=== PATIENT | female | born 1970 | race Caucasian/White ===

== ENCOUNTER → 2024-03-29 10:25 | Outpatient (REF) | payer MEDICARE, OTHER, SELFPAY | LOC: HWCARD 10:25 | PROVIDERS: ATTENDING PHYSICIAN Registered Nurse; FAMILY PHYSICIAN Family Medicine | DX: R94.31 Abnormal electrocardiogram [ECG] [EKG] (principal); Z79.899 Other long term (current) drug therapy | CPT/HCPCS: 93005 ==

== ENCOUNTER 2024-07-13 23:41 | Emergency (ER) | payer MEDICARE, OTHER, SELFPAY ==
[2024-07-13 23:44] VITALS: BP 123/85
[2024-07-14 00:36] VITALS: BMI 25.7
--- NOTE | 2024-07-14 01:19 | ED.GENMED ---
History of Present Illness
General
Chief Complaint: Psychiatric Problem
Source: patient and spouse
Time Seen by Provider: 07/14/24 00:40
History of Present Illness
History of Present Illness:
54-year-old female with history of schizoaffective disorder on Geodon who presents after she developed jaw tightness and her mouth stuck open. She states it causes her to have spasms of her muscles and she also vomited. She ended up taking several
doses of Cogentin at home. The patient states she was not sure she kept it down because she vomited so took up to 4 or 5 mg. In addition, she took a milligram of Klonopin. The patient now feels much better. She states that sometimes she feels
like she should get an injection because it works faster because the symptoms lasted about 2 hours and were difficult for her. No other symptoms noted. She states she has been tolerating otherwise Geodon well
Past History
Past History
ED Past Medical History: Psychiatric (The patient has a history of schizoaffective disorder, eating disorders, anorexia nervosa)
ED Past Surgical History: None
Social History
Personal: Single
Living: with family
Employment: Employed
Phy Exam
Physical Exam
Physical Exam:
CONSTITUTIONAL Vital signs reviewed, Patient alert and oriented to person, place and time. Well-appearing
HEAD atraumatic, normocephalic.
EYES eyelids normal to inspection, Extraocular muscles intact, Conjunctiva normal, Sclera normal.
NECK normal range of motion, Trachea midline, no jugular venous distention.
RESP no respiratory distress
BACK No obvious deformities
UPPER EXTREMITY Gross Range of motion normal, gross motor strength normal
LOWER EXTREMITY Gross range of motion normal, Gross motor strength normal
NEURO Speech normal, No focal motor deficits include, [place] coma scale 15, Memory normal, Cranial Nerves intact to screening exam.
SKIN Skin warm, dry, and normal in color.
PSYCHIATRIC Patient oriented to person place and time, Normal affect.
Course
Vital Signs
Initial and Last Documented VS:
Initial Vital Signs
Temp Pulse Resp BP Pulse Ox
98.1 F 80 15 123/85 98
07/13/24 23:44 07/13/24 23:44 07/13/24 23:44 07/13/24 23:44 07/13/24 23:44
Last Documented Vital Signs
Temp Pulse Resp BP Pulse Ox
98.1 F 80 15 123/85 98
07/13/24 23:44 07/13/24 23:44 07/13/24 23:44 07/13/24 23:44 07/13/24 23:44
MDM/Problems Addressed
MDM/Problems Addressed:
Dystonic reaction
*Pulse Oximetry
Patient hypoxic: no
*Critical Care Note
Total Time (30-74mins, 75-104mins- exclusive of procedures): Not Applicable
Data Reviewed
Source: patient and spouse
Prescriptions/Medications Considered But Not Given:
Consider Benadryl with patient symptoms have resolved
Patient Management
Escalation/DeEscalation of care consider admission/obs:
Awake and alert, no further symptoms. Okay for discharge and outpatient follow-up.
ED Attending Note
-
Portions of this chart may have been created with voice recognition software.� Occasional wrong word or��sound alike� substitutions may have occurred due to the inherent limitations of voice recognition software.
Discharge Plan
Departure
Patient Disposition: Home (Routine Discharge)
Date of Disposition: 07/14/24
Time of Disposition: 01:19
Patient with high blood pressure during this ER visit?: No
Discharge Problem:
Dystonia
Instructions: Dystonia
Prescriptions:
No Action
No Current Medications
0
Referrals:
UNKNOWN - PT DOES,NOT KNOW [Family Provider] -
Activity Restrictions/Additional Instructions:
Please see your doctor in the next 3 days for follow-up and reevaluation. Return immediately for intractable symptoms, vomiting, poor reaction to medications or any other concerns.
Interventions
Interventions:
*Risk Screen - Suicide Last Done: 07/14/24 00:37
*General Assessment Last Done: 07/14/24 00:37
*Neglect/Abuse Screening Last Done: 07/14/24 00:37
*ED COVID-19 Vaccine History Last Done: 07/14/24 00:37
Discharge Date and Time
Print Language: MONGOLIAN
== END 2024-07-14 01:36 | disposition home or self-care (01) ==
LOC: EMR 23:41
PROVIDERS: EMERGENCY PHYSICIAN Emergency Medicine
DX: G24.9 Dystonia, unspecified (principal); F25.9 Schizoaffective disorder, unspecified
CPT/HCPCS: 99282

== ENCOUNTER 2024-08-06 20:00 | Emergency (ER) | payer MEDICARE, OTHER, SELFPAY ==
[2024-08-06 20:03] VITALS: BP 170/97; BMI 26.6
[2024-08-06 20:10] VITALS: BP 117/85
[2024-08-06] MEDS: COGENTIN 1 MG IM (20:57)
[2024-08-06 21:00] VITALS: BP 108/69
--- NOTE | 2024-08-06 21:27 | ED.GENMED ---
History of Present Illness
General
Chief Complaint: Medication Reaction
Source: patient and spouse
Exam Limitations: none
Time Seen by Provider: 08/06/24 20:46
Nursing documentation reviewed up to this point in time: agreed with
History of Present Illness
History of Present Illness:
54-year-old female presenting to the emergency department today with concerns of what she believes is a dystonic reaction to her Geodon she has had many similar episodes in the past she does take Cogentin at home but sometimes needs additional
dosing in the ER. She denies any additional symptoms otherwise. Took 2 Cogentin at home with some improvement. Denies chest pain shortness breath fevers.
Past History
Past History
ED Past Medical History: Psychiatric (The patient has a history of schizoaffective disorder, eating disorders, anorexia nervosa)
ED Past Surgical History: None
Social History
Personal: Single
Living: with family
Employment: Employed
Review of Systems
Review of Systems
Allergies reviewed?: Yes
All Other Systems: ROS reviewed and negative except as documented in HPI and ROS
Phy Exam
Physical Exam
Physical Exam:
GENERAL: Alert , in no apparent distress
EYE: pupils equal and reactive
NECK: Supple, no significant adenopathy.
ENT: o/p clr, mmm.
CARDIAC: Regular rate and rhythm .
LUNGS: Clear breath sounds bilaterally, no acute respiratory distress, no wheezes/rales/rhonchi
ABDOMEN: Soft, without focal tenderness, no r/g, no cvat
NEUROLOGICAL: Alert and oriented, no focal neuro deficits
SKIN: Warm and dry, skin intact.
MUSCULOSKELETAL: No edema, well perfused.
PSYCH: Normal and appropriate interaction.
Course
Orders/Labs/Results
Orders:
Orders
08/06/24 20:06
EKG [Electrocardiogram (*1)] Urgent
Reason for Study: Tachycardia
EKG- Treatment ONCE
08/06/24 20:52
Benztropine Mesylate [Cogentin] 1 mg IM NOW STA
Vital Signs
Initial and Last Documented VS:
Initial Vital Signs
Temp Pulse Resp BP Pulse Ox
97.6 F 104 20 170/97 97
08/06/24 20:03 08/06/24 20:03 08/06/24 20:03 08/06/24 20:03 08/06/24 20:03
Last Documented Vital Signs
Temp Pulse Resp BP Pulse Ox
97.6 F 72 14 108/69 94
08/06/24 20:03 08/06/24 21:30 08/06/24 21:30 08/06/24 21:00 08/06/24 21:30
MDM/Problems Addressed
MDM/Problems Addressed:
55-year-old female presenting to the emergency department today with concerns of dystonic reaction took 2 Cogentin at home without full relief. On arrival here patient is no distress patient able to speak no specific ongoing symptoms. Patient was
given an IM dose of Cogentin here concerning she claims she had some ongoing symptoms. She claims that she felt well shortly thereafter and was stable for discharge. Return precautions given.
*Critical Care Note
Total Time (30-74mins, 75-104mins- exclusive of procedures): Not Applicable
ED Attending Note
-
Portions of this chart may have been created with voice recognition software.� Occasional wrong word or��sound alike� substitutions may have occurred due to the inherent limitations of voice recognition software.
Discharge Plan
Departure
Patient Disposition: Home (Routine Discharge)
Date of Disposition: 08/06/24
Time of Disposition: 22:18
Patient with high blood pressure during this ER visit?: No
Condition: Good
Covid-19: Not Applicable
Discharge Problem:
Medication reaction
Instructions: Adverse Drug Reactions, Adult ED
Prescriptions:
No Action
No Current Medications
0
Referrals:
UNKNOWN - PT NOT,INTERVIEWE [Family Provider] -
Activity Restrictions/Additional Instructions:
You came to the emergency department today with concerns of reaction to your medication. Please follow closely with your outpatient doctors. Return to the emergency department for any worsening, new or concerning symptoms.
Interventions
Interventions:
*Risk Screen - Suicide Last Done: 08/06/24 20:03
*General Assessment Last Done: 08/06/24 20:03
*Neglect/Abuse Screening Last Done: 08/06/24 20:03
ED- Fall Risk Assessment Last Done: 08/06/24 20:03
*ED COVID-19 Vaccine History Last Done: 08/06/24 20:03
*Nursing Disposition Last Done: 08/06/24 22:22
ED-Skin Assessment Last Done: 08/06/24 20:26
ED- Pulmonary Assessment Last Done: 08/06/24 20:26
ED-EENT Assessment Last Done: 08/06/24 20:26
Discharge Date and Time
Discharge Date/Time: 08/06/24 22:23
Print Language: ROMANIAN
== END 2024-08-06 22:23 | disposition home or self-care (01) ==
LOC: EMR 20:00
PROVIDERS: EMERGENCY PHYSICIAN Emergency Medicine
DX: G24.9 Dystonia, unspecified (principal); T50.905A Adverse effect of unspecified drugs, medicaments and biological substances, initial encounter; Y92.9 Unspecified place or not applicable; F25.9 Schizoaffective disorder, unspecified; F50.00 Anorexia nervosa, unspecified
CPT/HCPCS: 99282; 96372; J0515

== ENCOUNTER → 2025-03-08 10:14 | Outpatient (REF) | payer MEDICARE, OTHER, SELFPAY | LOC: HWCARD 10:14 | PROVIDERS: ATTENDING PHYSICIAN Registered Nurse; FAMILY PHYSICIAN Family Medicine | DX: R94.31 Abnormal electrocardiogram [ECG] [EKG] (principal) | CPT/HCPCS: 93005 ==

== ENCOUNTER 2025-11-01 15:54 | Emergency (ER) | payer MEDICARE, OTHER, SELFPAY ==
[2025-11-01 16:07] VITALS: BP 139/88
--- NOTE | 2025-11-01 16:46 | ED.GENMED ---
History of Present Illness
General
Chief Complaint: Crisis Evaluation
Source: patient and records
Exam Limitations: none
Time Seen by Provider: 11/01/25 16:19
Nursing documentation reviewed up to this point in time: agreed with
History of Present Illness
History of Present Illness:
55-year-old female with a past medical history of fibromyalgia, schizophrenia who presents to the emergency department on a 302 filed for aggressive behavior. She patient was brought in by police but 302 was filed by her ACT team. The patient says
that she saw her therapist today and explained that she was having worsening hallucinations�she says that she was hearing the voice of her therapist. She denies any command hallucinations and she says she has not been suicidal or homicidal. She
says that 302 came to pick her up and told her that she was being taken to the hospital on a 302 that she presumes was filed by her therapist. According to 302 report she apparently presented to her therapist today initially calm and then disclosed
that she was having hallucinations that her therapist was in her head and abusing her and made some aggressive motions towards her therapist and was difficult to redirect. She apparently made some vague remarks of being tired of living. 302 was
filed on this basis. Patient denies being suicidal or homicidal although she does admit to continued hallucinations. She reports compliance with all her medications. Denies drug or alcohol use aside from occasional marijuana.
Past History
Past History
ED Past Medical History: Psychiatric (The patient has a history of schizoaffective disorder, eating disorders, anorexia nervosa)
ED Past Surgical History: None
Social History
Personal: Single
Living: with family
Employment: Employed
Review of Systems
Review of Systems
All Other Systems: ROS reviewed and negative except as documented in HPI and ROS
Constitutional: Denies fever
Respiratory: Denies trouble breathing
Cardiac: Denies chest pain
ABD/GI: Denies abdominal pain
: Denies flank pain
Musculoskeletal: Denies neck pain or back pain
Neurological: Denies headache
Psychiatric: Reports hallucinations; Denies anxiety or suicidal
Phy Exam
Physical Exam
Physical Exam:
General: Awake, alert, laying in bed calm and cooperative
Head: Normocephalic, atraumatic
Eyes: Conjunctiva normal, EOMI
Throat: Airway intact, handling secretions
Neck: Trachea midline, supple without meningismus
Lungs: Clear to auscultation bilaterally, no wheezing, rales, rhonchi
Heart: Regular rate and rhythm, no murmurs, gallops, or rubs
Neuro: Grossly intact
Skin: Warm and dry
Extremities: No edema in extremities, equal pulses in all extremities
Psych: Reasonable insight, poor judgment, not suicidal homicidal, calm and cooperative, does not seem to be responding to internal stimuli
Scores
Heart Failure Risk
Heart Failure Risk Score: Not Applicable
Heart Score for Chest Pain Patients
STEMI patient?: Not applicable
Withdrawal Assessment of Alcohol
Withdrawal Assessment Completed?: Not applicable
Course
Orders/Labs/Results
Orders:
Orders
11/01/25 16:03
Crisis Consult Urgent
Reason for Consult: 302 petition
11/01/25 16:45
ED Special Safety Observation ONCE
Observation level: One to One
Drug Screen, Urine [Urine Drug Abuse Screen] Urgent
11/01/25 16:56
PSYCHIATRY CONSULT Urgent
Consulting Provider: David Hughes
Was physician already notified: Yes
11/01/25 17:00
Acetaminophen Urgent
Alcohol Urgent
Complete Blood Count/With Diff Urgent
Comprehensive Metabolic Panel Urgent
Salicylate Urgent
11/01/25 17:34
Electrocardiogram (*1) Urgent
Reason for Study: Other
Other Reason for Exam: hyperkalemia
EKG- Treatment ONCE
Abnormal Lab Results
11/01/25
17:00
RDW 11.3 L %
(11.5-14.5)
Potassium 5.2 H mmol/L
(3.5-5.1)
AST 43 H U/L
(14-36)
ALT 107 H U/L
(0-35)
Salicylates < 1.0 L mg/dl
(2.0-20.0)
Acetaminophen < 10 L ug/ml
(10-30)
11/01/25 17:00
11/01/25 17:00
Vital Signs
Initial and Last Documented VS:
Initial Vital Signs
Temp Pulse Resp BP Pulse Ox
36.7 C 110 20 139/88 98
11/01/25 16:07 11/01/25 16:07 11/01/25 16:07 11/01/25 16:07 11/01/25 16:07
Last Documented Vital Signs
Temp Pulse Resp BP Pulse Ox
36.7 C 110 20 139/88 98
11/01/25 16:07 11/01/25 16:07 11/01/25 16:07 11/01/25 16:07 11/01/25 16:47
MDM/Problems Addressed
Differential Diagnosis Includes:
Psychosis, Drug/alcohol use
MDM/Problems Addressed:
55-year-old female with history of schizophrenia/schizoaffective disorder presents to the emergency department on a 302 filed by her ACT team for hallucinations and some threatening behavior and vaguely suicidal remarks. Patient denies being
suicidal or homicidal. Vitals and exam are as above. Plan to monitor on continuous observation. Consult to psychiatrist to evaluate.
Screening labs reviewed: CBC unremarkable, CMP showed marginal hyperkalemia 5.2, no EKG changes no indication for any emergent intervention can get repeat labs next week. LFTs marginally elevated�again can be followed up on an outpatient basis no
indication for emergent intervention. She is medically cleared for psychiatric treatment which is her major issue. She was seen by psychiatry it sounds like they are pursuing voluntary placement.
Chronic conditions affecting care:
Schizophrenia
*Pulse Oximetry
SaO2: 98
Oxygen Mode of Delivery: Room air
Patient hypoxic: no (98%)
*EKG
Interpreted by ED Provider?: Yes
Heart Rate: 61
Rate: normal
Rhythm: sinus
[place]: normal axis
Interval: normal interval
QRS Pattern: normal QRS
Ischemia: no ischemia
*Critical Care Note
Total Time (30-74mins, 75-104mins- exclusive of procedures): Not Applicable
Data Reviewed
Source: patient
Patient Management
Discussion with other providers: Shank Burnisher (Discussed with psychiatrist) and Other (Discussed with crisis team)
Escalation/DeEscalation of care consider admission/obs:
Psych admission indicated
ED Attending Note
-
Portions of this chart may have been created with voice recognition software.� Occasional wrong word or��sound alike� substitutions may have occurred due to the inherent limitations of voice recognition software.
Discharge Plan
Departure
Patient Disposition: Psych Facility
Date of Disposition: 11/01/25
Time of Disposition: 16:53
Discharge Problem:
Auditory hallucinations
Prescriptions:
No Action
No Current Medications
0
Referrals:
UNKNOWN - PT NOT,INTERVIEWE [Family Provider]
Discharge Date and Time
Print Language: UKRAINIAN
[2025-11-01 17:12] LABS: Hematocrit 44.0 % (37.0-47.0); Hemoglobin 14.9 g/dL (12.0-16.0); Mean Corp Hgb Conc. 33.9 g/dL (33.0-37.0); Mean Corpuscular Volume 90.5 fL (81.0-99.0); Nucleated Red Blood Cells % 0 %; Platelet Count 284 10^3/uL (130-400); Red Cell Dist. Width 11.3 % (11.5-14.5)
--- NOTE | 2025-11-01 17:21 | CON.MD ---
Consultation - Medical
-
patient seen chart reviewed. this consult being done today november 01 2025. the patient is a 55 year old female well known to this scientific writer from [facility]. she has hx of schizoaffective disorder . she has been trying with her prescriber to revamp her
psych meds as they were interfering with savella which she was taking for fibromyalgia. geodon was decreased to 40 mg with it seems emergence of renewed psychosis. she is hearing a lof voices in her head which are causing great anxiety and she
feels she cannot trust anyone. she was seen by ACT which is her treatment team at [facility] and they filed a 302 petition alleging she made 'vague statements about feeling she cannot live like this anymore' she denied to me any intent to harm self or
others and did not seem in any way despondent. she did admit she was having difficulty with sleep as well as racing thoughts and the voices were interfering with her ability to trust those caring for her and others. she acknowledged the need to find
a med regiment so that she could be more comfortable and happier in her life
past psych hx patient has been hospitalized several times in the past. she has most recently had rx throught the act program at [facility] where she has a therapist and a paper latcher prescriber
medical hx fibromyalgia. just given a scrip for zanaflex by her prescriber. had tried savella which was not helpful. also constipation takes colace and senna K tiny bit elevated as are lft's will confer with dr zimmerman
substance abuse tried mj recently for fibromyalgia. did not like how it made her feel
social lives with her partner of many years who is very supportive. 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
family hx denied
mse alert ox3 cooperative pleasant speech hyperverbal and a bit rapid. thought process tangential and circumstantial delusional hallucinating see above denies thought of harming self or others but the voices have made her distrust those around her.
mood is anxious affect congruent to thoughts insight and judgment fair
dx schizoaffective disorder acute exacerbation
plan patient agrees to go in patient as a voluntary admission. the 302 was not upheld and she was allowed to sign in voluntarily. would suggest vraylar be considered if she cannot tolerate higher doses of geodon. labs done. dr zimmerman to review.
[2025-11-01 17:26] LABS: ALT (SGPT) 107 U/L (0-35); AST (SGOT) 43 U/L (14-36); Albumin 4.6 g/dl (3.5-5.0); Alkaline Phosphatase 80 U/L (38-126); Blood Urea Nitrogen 11 mg/dl (7-17); Calcium 9.5 mg/dl (8.4-10.2); Carbon Dioxide 27 mmol/L (22-30); Chloride 104 mmol/L (98-107); Glucose 98 mg/dl (70-99); Potassium 5.2 mmol/L (3.5-5.1); Sodium 137 mmol/L (135-145); Total Protein 7.0 g/dl (6.3-8.2); eGFR > 60.00
[2025-11-01 17:28] LABS: Acetaminophen < 10 ug/ml (10-30); Salicylate < 1.0 mg/dl (2.0-20.0)
[2025-11-01 18:05] VITALS: BMI 25.8
== END 2025-11-01 21:00 ==
LOC: EMR 15:54
PROVIDERS: CONSULT PHYSICIAN Psychiatry & Neurology Psychiatry; EMERGENCY PHYSICIAN Emergency Medicine
DX: F25.9 Schizoaffective disorder, unspecified (principal); M79.7 Fibromyalgia
CPT/HCPCS: 99285; 80053; 80143; 80179; 82077; 85025; 93005